=== PATIENT | female | born 1950 | race Asian ===

== ENCOUNTER 2020-04-22 00:23 | Emergency (ER) | payer BC ==
[~2020-04-22] VITALS: Ht 157.5 cm; Wt 68.0 kg
[2020-04-22 00:35] VITALS: Ht 157.5 cm; Wt 68.0 kg
[2020-04-22 01:43] LABS: CALCIUM 8.9 mg/dL (8.5-10.1); CARBON DIOXIDE 25.8 mmol/L (21-32); CHLORIDE SERUM 103 mmol/L (98-107); CREATININE SERUM 0.8 mg/dL (0.6-1.0); GFR1 > 60 mL/min; GLUCOSE SERUM 156 mg/dL (74-106); POTASSIUM SERUM 3.7 mmol/L (3.5-5.1); SODIUM SERUM 140 mmol/L (136-145)
[2020-04-22 01:56] LABS: ALBUMIN 3.9 g/dL (3.4-5.0); ALKALINE PHOSPHATASE 77 U/L (46-116); ALT/SGPT 42 U/L (14-59); AST/SGOT 29 U/L (15-37); FREE T4 0.92 ng/dL (0.76-1.46); TOTAL PROTEIN, SERUM 7.7 g/dL (6.4-8.2)
[2020-04-22 02:18] LABS: BASOPHIL % 0.2 % (0-2); PLATELET COUNT 249 x10^3mcL (130-400); RED CELL DISTRIBUTION WIDTH 13.7 % (11.5-14.5)
[2020-04-22 03:17] VITALS: BP 161/77
== END 2020-04-22 03:17 | disposition home or self-care (01) ==
LOC: ED 00:23
PROVIDERS: Emergency Medicine
DX: I10 Essential (primary) hypertension (principal); R42 Dizziness and giddiness; R11.2 Nausea with vomiting, unspecified; R19.7 Diarrhea, unspecified
CPT/HCPCS: 84439; J2405; J8597; Q0092